=== PATIENT | male | born 1940 | race Caucasian/White ===

== ENCOUNTER 2021-01-30 13:55 | Emergency (ER) | payer OTHER ==
[2021-01-30 15:10] LABS: BASOPHIL 0.4 % (0-2); HCT 41.9 % (42.0-52.0); HGB 14.1 g/dl (13.2-18.0); LYMPHOCYTE 12.9 % (15-48); MCH 30.9 pg (25.0-31.0); MCHC 33.7 g/dL (32.0-36.0); MCV 91.7 fL (78.0-100.0); MONOCYTE 10.7 % (0-12); MPV 9.8 fL (6.0-9.5); NEUTROPHIL 73.7 % (41-80); NRBC 0; PLT 282 K/uL (150-400); RBC 4.57 M/uL (4.70-6.00); RDW 13.2 % (11.5-14.0); WBC 7.1 K/uL (4.0-10.5)
[2021-01-30 15:16] LABS: ALBUMIN 3.6 g/dL (3.4-5.0); BILIRUBIN - TOTAL 0.3 mg/dL (0.2-1.0); BUN/CREAT RATIO (CALC) 22.4 RATIO; CREATININE 1.16 mg/dL (0.67-1.17); GLOBULIN (CALCULATION) 3.5 g/dL; POTASSIUM 4.1 mmol/L (3.5-5.1); TOTAL PROTEIN 7.1 g/dL (6.4-8.2)
[2021-01-30 16:05] LABS: BILIRUBIN NEGATIVE (NEGATIVE); BLOOD NEGATIVE Ery/uL (NEGATIVE); CLARITY HAZY (CLEAR); COLOR YELLOW (YELLOW); GLUCOSE (U) NORMAL (NORMAL); LEUKOCYTES NEGATIVE Leu/uL (NEGATIVE); NITRITE NEGATIVE (NEGATIVE); PROTEIN NEGATIVE (NEGATIVE); SPECIFIC GRAVITY 1.025 (1.001-1.030); UROBILINOGEN 0.2 mg/dL (0.2-1.0)
== END 2021-01-30 16:26 | disposition home or self-care (01) ==
LOC: FER 13:55
PROVIDERS: Nurse Practitioner Family
DX: R07.89 Other chest pain (principal); I10 Essential (primary) hypertension; Z87.891 Personal history of nicotine dependence
CPT/HCPCS: 36415; 71046; 80053; 81003; 84484; 85025; 93005

== ENCOUNTER → 2021-10-02 | Day surgery (SDC) | payer MEDICARE ==
[~2021-10-02] VITALS: Ht 170.2 cm; Wt 68.0 kg
[~2021-10-02] MED LIST: ASPIRIN EC81 MG PO; LIPITOR40 MG PO; LISINOPRIL-HCT1 EACH PO; LOPRESSOR25 MG PO; LOVAZA1 GM PO; MELATONIN5 M2 PO; METAMUCIL1 DOSE PO; PRESERVISION A1 EACH PO
== END | disposition home or self-care (01) ==
LOC: FAS 09-30 11:00
DX: Z12.11 Encounter for screening for malignant neoplasm of colon (principal); K57.30 Diverticulosis of large intestine without perforation or abscess without bleeding; I25.10 Atherosclerotic heart disease of native coronary artery without angina pectoris; I10 Essential (primary) hypertension; Z86.010 Personal history of colon polyps; Z87.891 Personal history of nicotine dependence; Z79.82 Long term (current) use of aspirin; Z80.0 Family history of malignant neoplasm of digestive organs; Z72.89 Other problems related to lifestyle
CPT/HCPCS: J1610; J2250; J7120